=== PATIENT | female | born 1965 | race Caucasian/White ===

== ENCOUNTER → 2024-03-29 06:27 | Day surgery (SDC) | payer BC, SELFPAY | LOC: GI 06:27 | PROVIDERS: ATTENDING PHYSICIAN Internal Medicine | DX: Z12.11 Encounter for screening for malignant neoplasm of colon (principal); K57.30 Diverticulosis of large intestine without perforation or abscess without bleeding; D12.3 Benign neoplasm of transverse colon; D12.5 Benign neoplasm of sigmoid colon; K63.5 Polyp of colon | CPT/HCPCS: 45385; 45380; 88305 ==

== ENCOUNTER → 2024-11-15 14:34 | Outpatient (REF) | payer BC, SELFPAY | LOC: WDC 14:34 | PROVIDERS: ATTENDING PHYSICIAN Obstetrics & Gynecology Gynecology; FAMILY PHYSICIAN Family Medicine | DX: Z12.31 Encounter for screening mammogram for malignant neoplasm of breast (principal) | CPT/HCPCS: 77063; 77067 ==